=== PATIENT | female | born 1965 | race African-American/Black ===

== ENCOUNTER → 2020-06-09 | Outpatient (CLI) | payer BC, OTHER ==
--- NOTE | 2020-06-09 10:24 | KCIC ---
EXAM: DUAL ENERGY X-RAY ABSORPTIOMETRY (DEXA). HISTORY: Postmenopausal screening. FINDINGS: The lowest measured T-score is -0.7 in the right total femur, based on a bone mineral density of 0.851 g/cm^2. Refer to the worksheets for full detail. No comparison examinations are available. IMPRESSION: Normal. Bone mineral density yields a T-score of -1.0 or greater. Fracture risk is low. FRAX was not calculated. METHODOLOGY: Dual energy x-ray absorptiometry was performed to measure bone mineral density. The following analysis is based on the 2019 Official Positions of the International Society for Clinical Densitometry: Measurements of the hips and the average of L1-L4 are preferred. When the spine and/or hip cannot be feasibly measured or interpreted, or in the setting of hyperparathyroidism, distal radial bone mineral density may be measured. The lumbar spine T-score is based on the average bone mineral density of L1-L4. In the setting of artifact or anatomic abnormality, some lumbar levels may be excluded, and the remaining levels used for calculation. A single lumbar level is not used for diagnosis, and if only a single level is available for assessment, another anatomic site will be used to assign a diagnosis. The hip T-score is based on the bone mineral density measurement of the femoral neck or total proximal femur of either side, whichever is lowest. Bilateral mean values are not used for diagnosis. The forearm T-score is derived from 33% of the distal radius of the nondominant forearm. For postmenopausal and perimenopausal women, and men age 50 or older, of all ethnic groups, T-scores are calculated through comparison of the current measurement with the NHANES III database standard for females aged 20-29 years. The lowest T-score of the evaluated anatomic sites is used to assign a diagnosis based on the World Health Organization densitometric classification. In premenopausal females and males younger than age 50, a Z-score is calculated based on population specific reference data for patient sex and self-reported ethnicity. Electronically signed by: Nguyen Johnson MD (06/09/2020 10:18 AM) [facility]
--- NOTE | 2020-06-09 12:11 | KCIC ---
Bilateral digital screening mammograms with 3-D tomosynthesis: Reason for examination: Routine screening. Comparison is made to previous studies dated 10/21/2013 and 10/01/2013 Bilateral mammograms in CC and oblique projections were obtained with 2-D imaging and 3-D tomosynthesis imaging on a Siemens Inspiration unit and reviewed on the workstation. Interpretation was made with the benefit of CAD. The skin and nipples show no abnormalities. No abnormal axillary lymph nodes are seen. The breast parenchyma shows scattered fatty and fibroglandular density. (Breast density: Category B.) There continue to be nodules at the 12:00 C, 12:30 C and 4:00 B positions of the right breast and at the 12:00 B, 9:00 B and 8:00 C positions of the left breast which are stable. There does however appear to be some new nodular parenchymal density anterior laterally on the right cc view probably at the 10:00 position 4.5 cm from the nipple. Further evaluation with ultrasound is recommended. There are no other dominant masses, suspicious calcifications or architectural distortion. Impression: Continued presence of multiple small nodules bilaterally which are stable. New nodular density however anterior laterally in the right breast on cc view probably at the 10:00 position measuring 8.5 mm in greatest dimension. Recommend further evaluation with ultrasound. BI-RADS Category 0: Incomplete. Needs additional imaging evaluation. "Our facility is accredited by the [employer] Mammography Program." This patient's information has been entered into a reminder system for the patient to be notified with the results of her examination and a target date for the next mammogram. Electronically signed by: Geraldine Rai MD (06/09/2020 12:08 PM) [id number]
--- NOTE | 2020-06-09 13:38 | KCIC ---
5 views of the lumbar spine without comparison for worsening chronic low back pain, bilateral radiculopathy. FINDINGS: There is no fracture, or acute osseous or alignment abnormality of lumbar spine. There is narrowing of L5-S1 intervertebral disc space, and there may be some facet arthrosis at this level as well. No other significant degenerative changes are seen. No pathologic calcification identified. IMPRESSION: 1. Degenerative disc disease at L5-S1. Electronically signed by: Chandan Choi MD (06/09/2020 1:35 PM) [id number]
== END ==
LOC: KCIC DEXA 08:34
PROVIDERS: ATTEND Internal Medicine
DX: Z12.31 Encounter for screening mammogram for malignant neoplasm of breast (principal); N64.89 Other specified disorders of breast; M51.37 Other intervertebral disc degeneration, lumbosacral region; M48.07 Spinal stenosis, lumbosacral region; G89.29 Other chronic pain; E28.0 Estrogen excess; R89.1 Abnormal level of hormones in specimens from other organs, systems and tissues
CPT/HCPCS: 72110; 77063; 77067; 77080